=== PATIENT | male | born 1960 | race African-American/Black ===

== ENCOUNTER 2019-11-23 07:10 | Emergency (ER) | payer MEDICAID ==
[~2019-11-23] VITALS: Ht 185.4 cm; Wt 91.0 kg
[2019-11-23] MEDS ORDERED: TETRACAINE 0.5% OPHTH DROPS 4ML BOTHEYE ONE ×2 (07:45)
[2019-11-23] MEDS ORDERED: IBUPROFEN 600MG TABLET PO ONE (08:00)
[2019-11-23] MEDS ORDERED: ACETAMINOPHEN 500MG TABLET PO ONE (08:00)
[2019-11-23] MEDS ORDERED: FLUORESCEIN SODIUM 1MG/STRIP BOTHEYE ONE (08:00)
[2019-11-23 08:08] VITALS: BP 134/94
== END 2019-11-23 08:09 | disposition home or self-care (01) ==
LOC: ER 07:10
DX: H16.9 Unspecified keratitis (principal); H57.13 Ocular pain, bilateral
CPT/HCPCS: 99283